=== PATIENT | female | born 1995 | race Two or more races ===

== ENCOUNTER 2024-06-04 14:20 | Emergency (ER) | payer MEDICAID, OTHER ==
[~2024-06-04] VITALS: Ht 162.6 cm; Wt 102.9 kg
--- NOTE | 2024-06-04 14:59 | ED.PDOC ---
History of Present Illness HPI Comments This is a 28-year-old female who comes in with chief complaint of abdominal pain. The patient was approximately seven weeks . She was at her OBGYN office and an ultrasound was done which showed something somewhat irregular so the patient was sent down to the emergency department's for evaluation. The patient is having increased pain as well as some bleeding. The patient thinks that she is approximately seven weeks . She states that the pain is a 10/10. 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 Family History Family History: Family hx of Cancer Social History Smoker: Non-Smoker Alcohol: Denies ETOH Use Drugs: Denies Drug Use Lives In: Home Constitutional: denies: chills, diaphoresis, fatigue, fever, malaise, sweats, weakness, others EENTM: denies: blurred vision, double vision, ear bleeding, ear discharge, ear drainage, ear pain, ear ringing, eye pain, eye redness, hearing loss, mouth pain, mouth swelling, nasal discharge, nose bleeding, nose congestion, nose pain, photophobia, tearing, throat pain, throat swelling, voice changes, others Respiratory: denies: cough, hemoptysis, orthopnea, SOB at rest, shortness of breath, SOB with excertion, stridor, wheezing, others Cardiovascular: denies: chest pain, dizzy spells, diaphoresis, Dyspnea on exertion, edema, irregular heart beat, left arm pain, lightheadedness, palpitations, PND, syncope, others Gastrointestinal: denies: abdomen distended, abdominal pain, blood streaked bowels, constipated, diarrhea, dysphagia, difficulty swallowing, hematemesis, melena, nausea, poor appetite, poor fluid intake, rectal bleeding, rectal pain, vomiting, others Genitourinary: reports: abnormal vagina bleeding, pain, ; denies: burning, dyspareunia, dysuria, flank pain, frequency, hematuria, incontinence, vagina discharge, urgency, others Neurological: denies: dizziness, fainting, headache, left sided numbness, left sided weakness, numbness, paresthesia, pre-existing deficit, right sided numbness, right sided weakness, seizure, speech problems, tingling, tremors, weakness, others Musculoskeletal: denies: back pain, gout, joint pain, joint swelling, muscle pa in, muscle stiffness, neck pain, others Integumetry: denies: bruises, change in color, change in hair/nails, dryness, laceration, lesions, lumps, rash, wounds, others Allergic/Immunocompromised: denies: Difficulty Healing, Frequent Infections, Hives, Itching, others Hematologic/Lymphatic: denies: anemia, blood clots, easy bleeding, easy bruising, swollen glands, others Endocrine: denies: excessive hunger, excessive sweating, excessive thirst, excessive urination, flushing, intolerance to cold, intolerance to heat, unexplained weight gain, unexplained weight loss, others Psychiatric: denies: anxiety, bipolar disorder, depression, hopeless, panic disorder, schizophrenia, sleepless, suicidal, others Physical Exam General Appearance: Mild Distress HEENT: Normal ENT Inspection, Pharynx Normal, TMs Normal Neck: Full Range of Motion, Non-Tender, Normal, Normal Inspection Respiratory: Chest Non-Tender, Lungs Clear, No Accessory Muscle Use, No Respiratory Distress, Normal Breath Sounds Cardiovascular: No Edema, No JVD, No Murmur, No Gallop, Normal Peripheral Pulses, Regular Rate/Rhythm Breast Exam: Deferred Gastrointestinal: No Organomegaly, No Pulsatile Mass, Normal Bowel Sounds, Soft, Suprapubic, Tenderness Genitalia: Deferred Pelvic: Deferred Rectal: Deferred Extremities: No calf tenderness, Normal capillary refill, Normal inspection, Normal range of motion, Non-tender, No pedal edema Musculoskeletal : Apperance: Normal Neurologic: Alert, computed tomography technologist II-XII nml as Tested, No Motor Deficits, Normal Affect, Normal Mood, No Sensory Deficits Cerebellar Function: Normal Reflexes: Normal Skin: Dry, Normal Color, Warm Lymphatic: No Adenopathy Was a procedure done? Was a procedure done?: No Differential Dx Considerations may include: Ectopic , UTI, threatened X-Ray, Labs, Meds, VS Vital Signs Date Time Temp Pulse Resp B/P (MAP) Pulse Ox O2 Delivery O2 Flow Rate FiO2 06/04/24 16:00 73 15 108/63 (78) 100 06/04/24 15:49 73 15 108/63 06/04/24 15:27 82 17 98 Room Air* 0 21 06/04/24 15:19 82 17 116/77 06/04/24 15:06 98.1 82 17 116/77 (90) 98 98.1 06/04/24 14:41 99.0 82 20 108/52 (70) 100 Lab Test 06/04/24 15:14 Range/Units White Blood Count 12.6 H 4.4-10.8 10^3/uL Red Blood Count 4.23 4.0-5.20 10^6/uL Hemoglobin 12.7 12.2-16.2 g/dL Hematocrit 38.4 36.0-46.0 % Mean Corpuscular Volume 90.6 80.0-100.0 fL Mean Corpuscular Hemoglobin 30.0 28.0-32.0 pg Mean Corpuscular Hemoglobin Concent 33.1 32.0-36.0 g/dL Red Cell Distribution Width 13.9 11.8-14.3 % Platelet Count 306 140-450 10^3/uL Mean Platelet Volume 7.9 6.9-10.8 fL Neutrophils (%) (Auto) 65.5 37.0-80.0 % Lymphocytes (%) (Auto) 24.0 10.0-50.0 % Monocytes (%) (Auto) 8.0 0.0-12.0 % Eosinophils (%) (Auto) 1.3 0.0-7.0 % Basophils (%) (Auto) 1.2 0.0-2.0 % Neutrophils # (Auto) 8.2 1.6-8.6 10 ^3/uL Lymphocytes # (Auto) 3.0 0.4-5.4 10 ^3/uL Monocytes # (Auto) 1.0 0-1.3 10 ^3/uL Eosinophils # (Auto) 0.2 0-0.8 10 ^3/uL Basophils # (Auto) 0.2 0-0.2 10 ^3/uL Nucleated Red Blood Cells 0.1 % Prothrombin Time 11.4 9.3-11.8 sec Prothrombin Time INR 1.08 0.9-1.15 Activated Partial Thromboplast Time 29.5 24.5-34.5 SEC Sodium Level 141 136-145 mmol/L Potassium Level 3.9 3.5-5.1 mmol/L Chloride Level 107 98-107 mmol/L Carbon Dioxide Level 25 20-31 mmol/L Anion Gap 9 5-15 Blood Urea Nitrogen 8 L 9-23 mg/dL Creatinine 0.58 0.550-1.02 mg/dL Glomerular Filtration Rate Calc 126 >90 mL/min BUN/Creatinine Ratio 13.8 10.0-20.0 Serum Glucose 86 74-106 mg/dL Calcium Level 9.9 8.7-10.4 mg/dL Beta HCG, Quantitative 251.9 H 1.5-4.2 mIU/mL Current Medications Medications (Trade) Dose Ordered Sig/Meredith Route Start Time Stop Time Status Last Admin Ondansetron HCl (Zofran) 4 mg ONCE ONCE IV 06/04/24 14:45 06/04/24 14:46 DC 06/04/24 15:18 Morphine Sulfate 2 mg ONCE ONCE IV 06/04/24 14:45 06/04/24 14:46 DC 06/04/24 15:19 PROCEDURE(s): OB4US - OB ULTRASOUND COMP LESS 14WKS IMPRESSION: 1. There is no evidence of an intrauterine . Correlation with serial beta HCG measurements is recommended. If warranted a short-term follow-up ultrasound study may be performed. 2. Nonvisualization of the ovaries. The patient was given morphine 2 mg IV push The patient was given Zofran 4 mg IV push for the nausea The patient's CBC shows an elevated white blood cell count of 12.6 The chemistry panel is within normal limits The beta hCG is 251.9 At this time, the patient was discharged and will follow up with the primary care doctor The patient will return to the emergency department's the condition worsens. Images Reviewed?: Images reviewed and evaluated by me Time of 1ST Reevaluation: 14:59 Reevaluation 1ST: Unchanged Patient Education/Counseling: Diagnosis, Treatment, Prognosis, Need For Follow Up Family Education/Counseling: No Family Present Departure 1 Departure Time of Disposition: 18:17 Impression: Primary Impression: Complete Disposition: 01 HOME / SELF CARE / HOMELESS Condition: Fair Discharged With: Self Critical Care Note Critical Care Time?: No Stability Stability form required: No Heart Score Heart Score: Heart Score Response (Comments) Value History N/A 0 EKG N/A 0 Age N/A 0 Risk Factors N/A 0 Troponin N/A 0 Total 0 I personally scribed for YULISSA SCHWARTZ MD ([email or web address]) on 06/04/24 at 17:42. Electronically submitted by Terry Sauceda ([email or web address]). YULISSA SCHWARTZ MD Jun 04, 2024 14:59
[2024-06-04 15:06] VITALS: TEMP 98.1
[2024-06-04] MEDS: ONDANSETRON HCL 4 MG/2 ML VIAL IV ONE (15:18)
[2024-06-04] MEDS: MORPHINE SULFATE INJ 2 MG/ml SYRG IV ONE (15:19)
[2024-06-04 15:27] VITALS: PULSE 82; RESP 17; O2SAT 98
[2024-06-04 15:49] LABS: Chloride 107 mmol/L (98-107); Potassium 3.9 mmol/L (3.5-5.1); Sodium 141 mmol/L (136-145)
[2024-06-04 15:50] LABS: Anion Gap 9 (5-15); Carbon Dioxide 25 mmol/L (20-31)
[2024-06-04 15:51] LABS: Calcium 9.9 mg/dL (8.7-10.4)
[2024-06-04 15:55] LABS: BUN/Creatinine Ratio 13.8 (10.0-20.0); Glucose 86 mg/dL (74-106)
[2024-06-04 15:57] LABS: Blood Urea Nitrogen 8 mg/dL (9-23)
[2024-06-04 16:12] LABS: INR 1.08 (0.9-1.15); Partial Thromboplastin Time 29.5 SEC (24.5-34.5); Prothrombin Time 11.4 sec (9.3-11.8)
[2024-06-04 16:17] LABS: Basophils # (auto) 0.2 10 ^3/uL (0-0.2); Basophils % (auto) 1.2 % (0.0-2.0); Eosinophils # (auto) 0.2 10 ^3/uL (0-0.8); Eosinophils % (auto) 1.3 % (0.0-7.0); Hematocrit 38.4 % (36.0-46.0); Hemoglobin 12.7 g/dL (12.2-16.2); Mean Corpuscular Hgb Conc. 33.1 g/dL (32.0-36.0); Mean Corpuscular Volume 90.6 fL (80.0-100.0); Neutrophils # (auto) 8.2 10 ^3/uL (1.6-8.6); Neutrophils % (auto) 65.5 % (37.0-80.0); Nucleated Red Blood Cells % 0.1 %; Platelet Count (auto) 306 10^3/uL (140-450); Red Blood Cells 4.23 10^6/uL (4.0-5.20); Red Cell Distribution Width 13.9 % (11.8-14.3); White Blood Cell 12.6 10^3/uL (4.4-10.8)
--- NOTE | 2024-06-04 17:14 | DVH ---
OB ULTRASOUND CLINICAL HISTORY: Vaginal bleeding. TECHNIQUE: Transabdominal and Transvaginal OB ultrasound. Comparison: None FINDINGS: The uterus measures 13.2 x 5.9 x 6.9 cm. The endometrial stripe measures 7 mm and appears within norm al limits. There is no evidence of an intrauterine gestational sac. The uterine myometrium appears ho mogeneous. The right and left ovaries are not seen on the current study. There is no gross evidence of an adnexal lesion.. There is no free fluid within the cul-de-sac. IMPRESSION: 1. There is no evidence of an intrauterine . Correlation with serial beta HCG measurements i s recommended. If warranted a short-term follow-up ultrasound study may be performed. 2. Nonvisualization of the ovaries. HS:Y
[2024-06-04 19:14] VITALS: BP 116/62; PULSE 76; RESP 18; O2SAT 98
== END 2024-06-04 19:16 | disposition home or self-care (01) ==
LOC: ER 14:37
DX: O03.9 Complete or unspecified spontaneous abortion without complication (principal); R10.2 Pelvic and perineal pain; Z90.49 Acquired absence of other specified parts of digestive tract; Z3A.01 Less than 8 weeks gestation of pregnancy
CPT/HCPCS: 36415; 76801; 76817; 80048; 84702; 85025; 85610; 85730; 96374; 96375; 99285; J2270; J2405